=== PATIENT | male | born 1980 | race Caucasian/White ===

== ENCOUNTER 2016-12-01 14:08 | Emergency (ER) | payer OTHER, MEDICAID ==
[2016-12-01 14:48] VITALS: BP 129/88
== END 2016-12-01 19:27 | disposition left against medical advice (07) ==
LOC: ER 14:12
DX: M79.621 Pain in right upper arm (principal); Z53.21 Procedure and treatment not carried out due to patient leaving prior to being seen by health care provider; X50.9XXA Other and unspecified overexertion or strenuous movements or postures, initial encounter; Y93.89 Activity, other specified; Y99.8 Other external cause status; Y92.89 Other specified places as the place of occurrence of the external cause

== ENCOUNTER 2017-01-20 10:16 | Emergency (ER) | payer OTHER, MEDICAID ==
[~2017-01-20] VITALS: Ht 185.4 cm; Wt 81.6 kg
[2017-01-20 12:09] VITALS: BP 152/103
[2017-01-20] MEDS ORDERED: KETOROLAC TROMETH 60MG/2ML VIAL IM ONE (12:15)
== END 2017-01-20 13:21 | disposition home or self-care (01) ==
LOC: ER 10:16 → EDBD 10:16 → ER 13:21
DX: S16.1XXA Strain of muscle, fascia and tendon at neck level, initial encounter (principal); M25.512 Pain in left shoulder; F17.210 Nicotine dependence, cigarettes, uncomplicated; X58.XXXA Exposure to other specified factors, initial encounter; Y93.89 Activity, other specified; Y99.8 Other external cause status; Y92.89 Other specified places as the place of occurrence of the external cause
CPT/HCPCS: 72040; 73030; 96372; 99284; J1885

== ENCOUNTER 2020-11-02 16:46 | Emergency (ER) | payer MEDICAID, OTHER ==
[~2020-11-02] VITALS: Ht 182.9 cm; Wt 75.7 kg
[2020-11-02 16:50] VITALS: BP 133/100
== END 2020-11-02 18:52 | disposition home or self-care (01) ==
LOC: ER 16:46
DX: J32.9 Chronic sinusitis, unspecified (principal); M54.2 Cervicalgia; F17.210 Nicotine dependence, cigarettes, uncomplicated; Z76.5 Malingerer [conscious simulation]; Z76.0 Encounter for issue of repeat prescription; Z88.0 Allergy status to penicillin